=== PATIENT | male | born 1980 | race Caucasian/White ===

== ENCOUNTER 2020-03-14 07:08 | Emergency (ER) | payer OTHER ==
[~2020-03-14] VITALS: Ht 185.4 cm; Wt 197.2 kg
[2020-03-14 07:24] VITALS: BP 161/85
--- NOTE | 2020-03-14 07:51 | NUR ---
PT RESP EVEN AND UNLABORED, CONVERSING W/O DIFFICULTY. NADN.
--- NOTE | 2020-03-14 08:04 | NUR ---
Patient given discharge instructions and they have confirmed that they understand the instructions. Patient ambulatory with steady gait.
== END 2020-03-14 08:05 | disposition home or self-care (01) ==
LOC: ED 07:54
DX: K08.89 Other specified disorders of teeth and supporting structures (principal); L03.211 Cellulitis of face; I10 Essential (primary) hypertension; E11.9 Type 2 diabetes mellitus without complications
CPT/HCPCS: 99283; 99284